=== PATIENT | male | born 1935 | race Caucasian/White ===

== ENCOUNTER → 2024-05-18 09:49 | Outpatient (REF) | payer OTHER, SELFPAY | LOC: RAD 09:49 | PROVIDERS: ATTENDING PHYSICIAN Surgery Vascular Surgery; FAMILY PHYSICIAN Family Medicine | DX: I73.9 Peripheral vascular disease, unspecified (principal) | CPT/HCPCS: 93922; 93925; 93978 ==

== ENCOUNTER → 2025-05-16 09:49 | Outpatient (REF) | payer OTHER, SELFPAY | LOC: DHVS 09:49 | PROVIDERS: ATTENDING PHYSICIAN Surgery Vascular Surgery; FAMILY PHYSICIAN Family Medicine | DX: I73.9 Peripheral vascular disease, unspecified (principal) | CPT/HCPCS: 93922; 93925; 93978 ==

== ENCOUNTER 2025-08-01 23:57 | Inpatient (IN) | payer OTHER, SELFPAY ==
[2025-08-01 19:11] VITALS: BP 144/58
--- NOTE | 2025-08-01 19:55 | ED.GENMED ---
History of Present Illness
General
Chief Complaint: Breathing Problem
Time Seen by Provider: 08/01/25 19:31
History of Present Illness
History of Present Illness:
Patient is an 89-year-old male with a history of atrial fibrillation on Eliquis, COPD not on home oxygen who presents to the emergency department with shortness of breath. This is gradual in onset. Has been worsening for the past few weeks.
Denies any cough or chest pain. Denies any leg swelling.
Past History
Past History
ED Past Medical History: Arrthythmia (A. fib on Eliquis and aspirin), COPD, HTN, Hypercholesterolemia and Other (anemia)
ED Past Surgical History: Other (vascular)
Social History
Tobacco: Non-smoker
Alcohol: None
Drug: None
Personal:
Living: with family
Employment: Retired
Family History
Family History: Other (Noncontributory)
Phy Exam
Physical Exam
Physical Exam:
GENERAL APPEARANCE: Thin appearing elderly gentleman
EYES lids/conjunctiva normal
EARS/NOSE/THROAT Mucous membranes moist, uvula midline without oral pharyngeal erythema, exudate or swelling
HEAD/NECK normocephalic atraumatic, neck is supple.
RESPIRATORY breathing comfortably on nasal cannula oxygen. No increased work of breathing. Diminished breath sounds throughout. There is expiratory wheezing throughout.
CARDIAC Regular rate and rhythm, no edema.
ABDOMINAL Soft, ND/NT.
MUSCLES/EXTREMITIES No abnormal range of motion, no swelling.
SKIN Warm, pink and dry. No rashes
NEUROLOGICAL Speech is clear and appropriate. Normal level of consciousness. 5/5 strength in all extremities.
PSYCH Normal mood and affect. Judgement/competence is appropriate
Scores
Heart Failure Risk
Heart Failure Risk Score: Not Applicable
Course
Orders/Labs/Results
Orders:
Orders
08/01/25 19:53
Ipratropium/Albuterol Sulfate [Duoneb] 3 ml INH R NOW STA
MethylPREDNISolone PF [Solu-Medrol Pf] 125 mg IV NOW STA
CR Chest - 2 Views Urgent
Comment:
Reason For Exam: sob
O2 Therapy [RESP] Stat
Titrate/Wean O2 to maintain O2 sat greater than (%): 90
Pulse Ox/cont/shift [RESP] Stat
Quantity: 1
08/01/25 20:18
Complete Blood Count/With Diff Urgent
Comprehensive Metabolic Panel Urgent
Lactic Acid Q4H
Comment: CANCEL 2nd LACTIC ACID IF 1st LACTIC ACID IS LESS THAN 2
NT-proBNP Urgent
Troponin I Urgent
Blood Culture Urgent
FRANCISCO Source: Blood/Venous
Specimen Description:
08/01/25 21:49
Electrocardiogram (*1) Urgent
Reason for Study: Shortness of Breath
08/01/25 22:02
Azithromycin 500 mg/250 ml [Zithromax Infusion] 500 mg in 250 ml IV NOW
CefTRIAXone [Rocephin] 1,000 mg IV NOW STA
08/02/25 00:00
Lactic Acid Q4H
Comment: CANCEL 2nd LACTIC ACID IF 1st LACTIC ACID IS LESS THAN 2
Abnormal Lab Results
08/01/25
20:18
RBC 3.53 L 10^6/uL
(4.70-6.10)
Hgb 10.6 L g/dL
(13.0-18.0)
Hct 32.6 L %
(39.0-52.0)
MCHC 32.5 L g/dL
(33.0-37.0)
RDW 15.8 H %
(11.5-14.5)
MPV 10.5 H fL
(7.4-10.4)
Absolute Neuts (auto) 7.2 H 10^3/uL
(1.4-6.5)
Absolute Lymphs (auto) 1.1 L 10^3/uL
(1.2-3.4)
Absolute Monos (auto) 0.9 H 10^3/uL
(0.1-0.6)
Lymphocytes % 11.3 L %
(20.5-51.1)
Monocytes % 9.7 H %
(1.7-9.3)
Chloride 108 H mmol/L
(98-107)
BUN 52 H mg/dl
(9-20)
Creatinine 2.5 H mg/dL
(0.7-1.3)
Glucose 115 H mg/dl
(70-99)
08/01/25 20:18
08/01/25 20:18
Vital Signs
Initial and Last Documented VS:
Initial Vital Signs
Temp Pulse Resp BP Pulse Ox
97.8 F 86 20 144/58 83
08/01/25 19:11 08/01/25 19:11 08/01/25 19:11 08/01/25 19:11 08/01/25 19:11
Last Documented Vital Signs
Temp Pulse Resp BP Pulse Ox
97.8 F 80 22 144/58 96
08/01/25 19:11 08/01/25 21:45 08/01/25 21:45 08/01/25 19:11 08/01/25 21:45
*Pulse Oximetry
SaO2: 98
Nasal Cannula flow liters per minute: 5
Oxygen Mode of Delivery: Room air
Patient hypoxic: yes
*Critical Care Note
Total Time (30-74mins, 75-104mins- exclusive of procedures): Not Applicable
ED Attending Note
ED Attending Note
ED Attending Note:
This 89-year-old male with history of atrial fibrillation on Eliquis, COPD, and hypertension presents with progressive dyspnea over several weeks. Given his age and risk factors, I considered multiple life-threatening conditions including pneumonia,
acute heart failure, COPD exacerbation, pulmonary embolism, and acute coronary syndrome.
Initial evaluation revealed significant hypoxia with room air saturation in the low 80s requiring supplemental oxygen. Physical examination demonstrated diffuse expiratory wheezes without peripheral edema. Laboratory studies showed chronic kidney
disease with creatinine elevation to 2.5 (baseline 1.8), markedly elevated BNP at 3710, and chest x-ray revealed right upper lobe infiltrate consistent with pneumonia.
The patient's presentation appears to represent multifactorial respiratory failure with components of both community-acquired pneumonia with possible acute heart failure, as evidenced by the significantly elevated BNP and radiographic findings.
While PE remains in the differential given his atrial fibrillation, his current anticoagulation with Eliquis makes this less likely.
The patient received bronchodilator therapy and systemic steroids with some improvement. Given the radiographic pneumonia, he was started on appropriate empiric antibiotics with azithromycin and ceftriaxone. He demonstrated clinical improvement with
initial interventions but continues to require supplemental oxygen.
Given his age, multiple comorbidities, new oxygen requirement, and evidence of both pneumonia and COPD exacerbation, admission is clearly indicated for further management. I discussed the findings and recommendation for admission with the patient,
who demonstrated understanding of the plan.
Medical decision making was high complexity given multiple diagnostic possibilities considered, abnormal vital signs requiring intervention, multiple diagnostic studies, initiation of parenteral antibiotics, and need for admission.
-
Portions of this chart may have been created with voice recognition software.� Occasional wrong word or��sound alike� substitutions may have occurred due to the inherent limitations of voice recognition software.
Discharge Plan
Departure
Prescriptions:
No Action
atorvastatin 40 MG tablet
40 mg PO QPM
carvedilol 6.25 MG tablet
6.25 mg PO BID
fluticasone propion-salmeterol [Advair HFA] 1 PUFF HFA aerosol inhaler
2 puff inhalation R DAILY
omega 8-kkf-hcl-fish oil 1 EACH capsule
1 ea PO DAILY
denosumab [Prolia] 60 MG/ML syringe
60 mg SQ .[id number]
Patient Comments:
last dose around 05/18
ferrous sulfate [FeroSul] 325 MG tablet
650 mg PO DAILY
multivitamin with folic acid [Tab-A-Rosa] 1 TABLET tablet
1 tab PO DAILY
calcium carbonate 600 MG tablet
600 mg PO DAILY
acetaminophen [Tylenol Extra Strength] 500 MG tablet
1,000 mg PO HSPRN PRN (Reason: mild pain)
cholecalciferol (vitamin D3) 2,000 UNITS tablet
2,000 units PO DAILY@1200
amlodipine 5 MG tablet
5 mg PO DAILY
pantoprazole 40 MG tablet,delayed release (DR/EC)
40 mg PO BID
ipratropium bromide 1 SPRAY spray,non-aerosol
2 spray intranasal BID
apixaban [Eliquis] 2.5 MG tablet
2.5 mg PO BID Qty: 0 0RF
Rx Instructions:
Resume taking from 06/02/21
Referrals:
Sha Campbell MD [Family Provider, Family Practice]
Interventions
Interventions:
*Risk Screen - Suicide Last Done: 08/01/25 19:11
*Neglect/Abuse Screening Last Done: 08/01/25 19:11
ED- Cardiac Assessment Last Done: 08/01/25 20:30
ED- Pulmonary Assessment Last Done: 08/01/25 20:30
Discharge Date and Time
Print Language: TURKMEN
[2025-08-01] MEDS: DUONEB 3 ML INH (20:29)
[2025-08-01 20:30] LABS: Hematocrit 32.6 % (39.0-52.0); Hemoglobin 10.6 g/dL (13.0-18.0); Mean Corp Hgb Conc. 32.5 g/dL (33.0-37.0); Mean Corpuscular Volume 92.4 fL (80.0-94.0); Nucleated Red Blood Cells % 0 % (-); Platelet Count 316 10^3/uL (130-400); Red Cell Dist. Width 15.8 % (11.5-14.5)
[2025-08-01] MEDS: SOLU-MEDROL PF 125 MG IV (20:30)
[2025-08-01 20:44] LABS: ALT (SGPT) 23 U/L (0-50); AST (SGOT) 28 U/L (17-59); Albumin 3.8 g/dl (3.5-5.0); Alkaline Phosphatase 87 U/L (38-126); Blood Urea Nitrogen 52 mg/dl (9-20); Calcium 9.5 mg/dl (8.4-10.2); Carbon Dioxide 26 mmol/L (22-30); Chloride 108 mmol/L (98-107); Glucose 115 mg/dl (70-99); Potassium 5.1 mmol/L (3.5-5.1); Sodium 142 mmol/L (135-145); Total Protein 7.8 g/dl (6.3-8.2); eGFR 23.96
[2025-08-01 20:54] LABS: Troponin I 0.025 ng/ml
[2025-08-01 22:01] VITALS: BP 160/66
--- NOTE | 2025-08-01 22:12 | W.PN.UPDATE ---
Addendum entered and electronically signed by Jeffrey Mccall MD 08/01/25 22:46:
CORRECTION:
DVT Px: COLLAR FOLDER OPERATOR Eliquis
<del>Full</del> <del>code</del> <del>Code:</del> DNR per patient in the presence of daughter and FARM OPERATIONS TECHNICAL DIRECTOR
IP TLM
Original Note:
Update Note
Progress Note Update
This note serves as an addendum to the H&P by manager neonatal Main Mendoza
HPI
89M HX Prx AF on Eliquis, HX COPD seen at ER:
- gradual SoB has been worsening for the past few weeks.
- Denies any cough or chest pain. Denies any leg swelling.
- worsening dyspnea over past few weeks
- newly hypoxic with RA Sat in the low 80s. requiring nasal cannula O2
- diffuse expiratory wheezes exams
labs with renal dysfunction, likely chronic (creat 2.5 -- most recent was 1.8 in 2020)
BNP is 3710
CXR looks like RUL pneumonia
Relevant VS
08/01/25
19:11 08/01/25
19:24
Temp 97.8 F
Pulse 86
Resp Rate 20
Blood pressure 144/58
SaO2 83 98
Oxygen Mode of Delivery Room air
Nasal Cannula flow liters per minute 5
PE
Gen: Not toxic
HEENT: anicteric
Neck: supple
Lungs:No increased work of breathing. Diminished breath sounds throughout. There is expiratory wheezing
Cor: RRR
Abdomen:�soft NT NG
NURSE'S ASSISTANT: NFND
MS: no0 edema
Psych: appropriate
Relevant Data
06/04/21 06/04/21 08/01/25
08:35 09:27 20:18
WBC 9.6
Hgb 9.9 L 10.6 L
Carbon Dioxide 26 26
BUN 26 H 52 H
Creatinine 1.8 H 2.5 H
Glomerular Filtr Rate 36.0
eGFR 23.96
Troponin I 0.025
Ywb-C-Ayzyuryreff Pept 3710
Relevant Data
BCx - sent
CXR:
There is an infiltrate within the right upper lung as well as mild bibasilar opacities which are favored to represent multifocal pneumonia. Recommend follow-up to ensure resolution.
04/15/20 TTE
LVEF 55-60%
Normal regional wall motion.
Mild to moderate MR
Moderate to severe TR
Normal pericardium without effusion.
Pleural effusion present.
Last hospitalist admission: DATE OF ADMISSION: 05/26/2021 - DATE OF DISCHARGE: 05/29/2021
PRINCIPAL DISCHARGE DIAGNOSES:
1. Iron deficiency anemia, suspected occult gastrointestinal blood loss.
2. History of peptic ulcer disease.O2 support
CHRONIC DISCHARGE DIAGNOSES:
1. Peripheral vascular disease with left iliac stent and fem-fem
bypass, in January 13.
2. History of right external iliac artery stenosis.
3. Chronic kidney disease stage IIIB.
4. Paroxysmal atrial fibrillation, on Eliquis.
5. Essential hypertension.
6. Chronic obstructive pulmonary disease.
7. History of coronary artery disease with tricuspid regurgitation
and mitral regurgitation.
ASSESSMENT & PLAN
Rt sided multifocal pneumonia - presumed CAP
COPD flares
Acute hypoxic RI requiring
- O2 supplement
- IV Decadron
- Nebs
- Empiric IV CFTZ and PO Azithro
CHRONIC DISCHARGE DIAGNOSES:
HX PAD with left iliac stent and fem-fem bypass, in January 13.
HX right external iliac artery stenosis.
[place] CKD3b
PAF on Eliquis.
Essential hypertension.
HX CAD with TR and MR
- Pending Rx reconciliation
DVT Px: COLLAR FOLDER OPERATOR Eliquis
Full code Code:
IP TLM
--- NOTE | 2025-08-01 22:15 | HPS.HSE ---
Family Physician
-
Family Physician: Sha Campbell
Chief Complaint
-
shortness of breath
History of Present Illness
Patient is a 89-year-old male with past medical history significant for hypertension, hyperlipidemia, paroxysmal atrial fibrillation, chronic kidney disease III, COPD and PVD presented to [facility] ED for evaluation of shortness of breath. Patient
reports that he has had increased shortness of breath for the last 4-5 days with no improvement felt exhausted today so decided to go to urgent care for evaluation and was referred to ED for evaluation and treatment. Patient denies any fever,
chills, cough, chest pain, nausea, vomitng, diarrhea or urinary symptoms.
Medical History
Past Medical History
Past Medical History: Reports Other
Additional Past Medical History:
hypertension
hyperlipidemia
paroxysmal atrial fibrillation
chronic kidney disease III
COPD
PVD
Past Surgical History: Reports Other
Additional Past Surgical History:
Tonsillectomy
RIH repair
Femoral bypass
LE stent
Bilateral cataracts
Left brachial artery cutdown, aortogram, pelvic angiogram and bilateral femoral angiography with placement of self expanding stent of left external iliac artery into common iliac artery 06/04/2021
Social History
Tobacco: Former Smoker
Alcohol: Former
Drug: None
Personal:
Living: With Family
Family History
Family History: Not pertinent
Allergies / Home Medications
Allergies reflects when Allergies were last updated in [facility].
Home Medications with original date entered in [facility]
Allergy/Medication List:
Medications on admission are unable to be verified or confirmed at this time.
If medication reconciliation has not been performed, why?: Other ( will complete tomorrow when she comes in, she is in charge of pills per patient )
Review of Systems
-
History Source: Patient
Constitutional: Reports No Symptoms
EENT: Reports No Symptoms
Respiratory: Reports Trouble Breathing (shortness of breath with hypoxia )
Cardiac: Reports No Symptoms
Abdomen/GI: Reports No Symptoms
: Reports No Symptoms
Musculoskeletal: Reports No Symptoms
Skin: Reports No Symptoms
Neurological: Reports No Symptoms
Endocrine: Reports No Symptoms
Hematologic/Lymphatic: Reports No Symptoms
Psych: Reports No Symptoms
Physical Exam
Vital Signs
Vital Signs
Temp Pulse Resp BP Pulse Ox
97.8 F 80 22 144/58 96
08/01/25 19:11 08/01/25 21:45 08/01/25 21:45 08/01/25 19:11 08/01/25 21:45
Physical Exam
General: No Apparent Distress, Comfortable, Conversant, Appears Chronically Ill and Cachectic
HEENT: NormoCephalic, Moist mucous membranes and Atraumatic
Respiratory: Clear, Wheezes, Non Labored Respirations and Decreased Breath Sounds
Cardiac: S1/S2 and Regular Rhythm
Breast: Deferred by me
GI: Soft, Non Tender, Non Distended and Normal Bowel Sounds; No Organomegaly
Rectal: Deferred by Provider
Genito-urinary: Deferred by me
Musculoskeletal: No Clubbing, No Cyanosis and No Edema
Skin: Warm and IV/Catheter Site
Neuro: Awake, AO x 3 and Nonfocal/grossly intact
Hematologic/Lymphatic: No Lymphadenopathy
Psych: Calm and Intact Judgment/Insight
Laboratory Results
-
08/01/25 20:18
08/01/25 20:18
Laboratory Results
Lactic Acid 0.8 mmol/L (0.7-2.0) 08/01/25 20:18
Total Bilirubin 0.4 mg/dl (0.2-1.3) 08/01/25 20:18
AST 28 U/L (17-59) 08/01/25 20:18
ALT 23 U/L (0-50) 08/01/25 20:18
Alkaline Phosphatase 87 U/L (38-126) 08/01/25 20:18
Troponin I 0.025 ng/ml 08/01/25 20:18
Data Reviewed
-
Diagnostic Radiology: Report Reviewed by me (CXR: There is an infiltrate within the right upper lung as well as mild bibasilar opacities which are favored to represent multifocal pneumonia. Recommend follow-up to ensure resolution.)
Lab Data: Labs Reviewed by me (BUN 52, Creat 2.5, eGFR 23.96, pBNP 3710)
Impression/Plan
-
IMPRESSION/PLAN:
#shortness of breath and hypoxia 2/2 pneumonia
BUN 52, Creat 2.5, eGFR 23.96, pBNP 3710
CXR: There is an infiltrate within the right upper lung as well as mild bibasilar opacities which are favored to represent multifocal pneumonia. Recommend follow-up to ensure resolution.
EKG: SINUS RHYTHM WITH PREMATURE ATRIAL COMPLEXES
SEPTAL INFARCT , AGE UNDETERMINED
- Admit to telemetry
- O2 supplement, wean as tolerated
- IV Decadron 4mg q12
- IV ceftriaxone
- PO Azithromycin
- supportive care
#hypertension
#hyperlipidemia
#paroxysmal atrial fibrillation
#chronic kidney disease III
#COPD
#PVD
* to complete med rec in AM, patient knows he takes Eliquis BID, will order Eliquis and other meds to be on hold until med rec completed*
Code status: DNR
DVT prophylaxis: Eliquis
[2025-08-01] MEDS: ZITHROMAX INFUSION 250 IV (22:23)
[2025-08-01] MEDS: ROCEPHIN 1000 MG IV (22:23)
[2025-08-01 23:00] VITALS: BP 136/84
[2025-08-02] VITALS (9 sets, daily range): BP systolic 122–176; BP diastolic 57–83; PULSE 78; O2SAT 91; BMI 18.0
[2025-08-02] MEDS: ELIQUIS PO (01:14)
[2025-08-02] MEDS: DECADRON 4 MG IV ×3 (01:16→23:12)
--- NOTE | 2025-08-02 03:33 | PTCARENOTE ---
Pt's B/P slowing climbing during this shift. 161/81 and 176/83. Nyasia Dove BD SPECIAL EDUCATION TEACHER aware. Will address if B/P >180 systolically.
[2025-08-02] MEDS: DUONEB 3 ML INH ×4 (07:23→20:29)
[2025-08-02 07:53] LABS: Hematocrit 33.6 % (39.0-52.0); Hemoglobin 10.9 g/dL (13.0-18.0); Mean Corp Hgb Conc. 32.4 g/dL (33.0-37.0); Mean Corpuscular Volume 93.1 fL (80.0-94.0); Platelet Count 332 10^3/uL (130-400); Red Cell Dist. Width 15.5 % (11.5-14.5)
[2025-08-02 08:19] LABS: Blood Urea Nitrogen 53 mg/dl (9-20); Calcium 9.5 mg/dl (8.4-10.2); Carbon Dioxide 23 mmol/L (22-30); Chloride 110 mmol/L (98-107); Estimated Creatinine Clearance 17 ml/min; Glucose 161 mg/dl (70-99); Potassium 4.9 mmol/L (3.5-5.1); Sodium 145 mmol/L (135-145); eGFR 27.93
[2025-08-02] MEDS: ELIQUIS 2.5 MG PO ×2 (08:37→19:35)
[2025-08-02 08:52] LABS: Nucleated Red Blood Cells % 0 % (-)
[2025-08-02] MEDS: COREG 6.25 MG PO ×2 (11:30→19:25)
--- NOTE | 2025-08-02 12:16 | CM ---
Chart reviewed. Met with pt at bedside. IA completed. Pt is independent at home with ADLs and IADLs. Lives with spouse in 2-story townhouse; has 1 step to entrance with a railing. [place] on 1st floor.Has children who live locally.No Hx of SNF. Had [facility]
years ago and was happy with their care. States he would like to have them again. DME: Rolling walker and grab bars in [place]. Confirmed PCP, RX, insurance and drug coverage. No insecurities identified.
PCP: Sha Campbell
Rx: [facility]
Plan: Home no needs.
--- NOTE | 2025-08-02 12:23 | W.PN.HOSP.TC ---
Today's Communication/Plan
-
Maintained on antibiotic
Maintained on steroids
Possible discharge tomorrow
Assessment / Plan
Assessment / Plan
1. Right upper lobe pneumonia
COPD flareup
- Chest x-ray reviewed and patient had right upper lobe infiltrates
- Patient was short of breath although not hypoxic
- Lung examination relatively clear today
- Maintain on Rocephin/azithromycin
- On IV Decadron 4 mg every 12 hours will transition to oral taper at discharge
- COVID check and sputum culture ordered
2. Paroxysmal atrial fibrillation
- Maintained on home dose of Eliquis 2-1/2 mg twice daily
3. Hyperlipidemia
- Continue on statin
4. Chronic kidney disease stage IIIb
- Creatinine close to baseline monitor
5. Essential hypertension
- Maintained on Coreg/Norvasc
DVT prophylaxis -Eliquis
DNR
Anticipated Discharge: Within 24 hours
Subjective/Interval History
-
Date of Service: August 02, 2025
Feeling better
Denies shortness of breath
Not on oxygen
Afebrile in night
Objective Data
-
Labs:
Laboratory Results
08/02/25
07:20
WBC 6.9
Hgb 10.9 L
Hct 33.6 L
Plt Count 332
Sodium 145
Potassium 4.9
Chloride 110 H
Carbon Dioxide 23
BUN 53 H
Creatinine 2.2 H
Glucose 161 H
Calcium 9.5
Vital Signs:
Vital Signs
Temp Pulse Resp BP Pulse Ox
97.5 F 88 16 140/62 91
08/02/25 11:00 08/02/25 11:40 08/02/25 11:40 08/02/25 11:00 08/02/25 11:40
Review of Systems
-
Respiratory: Reports No Symptoms
Cardiac: Reports No Symptoms
Abdomen/GI: Reports No Symptoms
Physical Exam
-
General: Comfortable and Cachectic
HEENT: Negative Oxygen
Respiratory: Clear to Auscultation
Cardiac: Regular Rhythm and S1/S2; Negative Murmur or Rub
Musculoskeletal: No Edema
Neuro: Awake, Alert, Oriented, No Motor Deficits and Nonfocal/Grossly Intact
Psych: Calm
[2025-08-02 14:53] LABS: COVID-19 Antigen Negative (Negative)
[2025-08-02] MEDS: ZITHROMAX 500 MG PO (21:33)
[2025-08-02] MEDS: STERILE WATER FOR INJECTION 10 ML IV (21:34)
[2025-08-02] MEDS: LIPITOR 40 MG PO (21:34)
[2025-08-02] MEDS: ROCEPHIN 1000 MG IV (21:34)
[2025-08-03 03:00] VITALS: BP 143/63
[2025-08-03] MEDS: DUONEB 3 ML INH ×2 (07:43→11:24)
[2025-08-03 07:59] LABS: Hematocrit 29.5 % (39.0-52.0); Hemoglobin 9.5 g/dL (13.0-18.0); Mean Corp Hgb Conc. 32.2 g/dL (33.0-37.0); Mean Corpuscular Volume 92.5 fL (80.0-94.0); Platelet Count 326 10^3/uL (130-400); Red Cell Dist. Width 15.5 % (11.5-14.5)
[2025-08-03] MEDS: COREG 6.25 MG PO (08:07)
[2025-08-03] MEDS: ELIQUIS 2.5 MG PO (08:08)
[2025-08-03] MEDS: NORVASC 5 MG PO (08:08)
[2025-08-03 08:27] VITALS: BP 146/67
[2025-08-03 09:03] LABS: Blood Urea Nitrogen 64 mg/dl (9-20); Calcium 8.7 mg/dl (8.4-10.2); Carbon Dioxide 22 mmol/L (22-30); Chloride 111 mmol/L (98-107); Estimated Creatinine Clearance 18 ml/min; Glucose 126 mg/dl (70-99); Potassium 5.1 mmol/L (3.5-5.1); Sodium 143 mmol/L (135-145); eGFR 29.53
--- NOTE | 2025-08-03 10:16 | W.DCSUMMARY ---
Discharge Summary
Discharge Data
Date of Admission: 08/01/25
Date of Discharge: 08/03/25
-
Pending Results: No
Hospital Course
Discharging Physician : Dr Vivek Linares
Disposition : To home with
Primary care physician : Dr Sha Campbell
Principal Discharge diagnosis :
Right upper lobe pneumonia
Chronic obstructive pulmonary disease flareup
Chronic Discharge diagnosis :
Essential hypertension
Paroxysmal atrial fibrillation
Hyperlipidemia
Chronic kidney disease stage III
Peripheral vascular disease
Hyperlipidemia
Physical examination:
HEENT: No cyanosis
NECK: Supple. No JVD.
RESPIRATORY: Lungs clear to auscultation.
CVS: S1, S2 normal. RRR. No murmur.
ABDOMEN: Soft, non-tender. No distension. BS+/normal.
EXTREMITIES: No peripheral cyanosis or edema.
PHOTOGRAPHIC DOUBLE: AOx3. No focal deficits.
Hospital Course :
Patient is 89-year-old male with no mentioned past medical history came to ER with new onset of shortness of breath for 4 to 5-day. No reported fever chills cough chest discomfort. In the ER patient had a chest x-ray which showed new right upper
lobe pneumonia. Patient was not septic from it. Patient was felt to having COPD flareup as well. Patient was started on IV steroids and IV antibiotics. COVID check was negative. Patient was not able to provide sputum culture sample. Patient
was not on oxygen at admission and remained so for the hospital stay. After clinical improvement patient was discharged on short course of antibiotic and tapering course of steroids.
Important imaging findings :
None
Procedure findings :
None
Discharge Plan
-
Patient Disposition: Home with Home Care
Discharge Diagnosis/Procedures: Right upper lobe pneumonia, COPD flare up
Condition: Fair
Diet: Low Cholesterol
Activity: As tolerated
Driving Restrictions: No driving
Bathing Restrictions: OK to Shower
Referrals:
Sha Campbell MD [Family Provider, [facility]] - in one week
Prescriptions:
New
azithromycin 250 mg tablet
250 mg PO DAILY 5 Days Qty: 5 0RF
cefdinir 300 mg capsule
300 mg PO BID 5 Days Qty: 10 0RF
prednisone 10 mg Tablet
See Rx Instructions .ROUTE .COMPLEX Qty: 20 0RF
Rx Instructions:
Take By Mouth:
40 mg daily x2 days, 30 mg daily x2 days,
20 mg daily x2 days, 10 mg daily x2 days.
Continued
atorvastatin 40 MG tablet
40 mg PO QPM
carvedilol 6.25 MG tablet
6.25 mg PO BID
fluticasone propion-salmeterol [Advair HFA] 1 PUFF HFA aerosol inhaler
2 puff inhalation R DAILY
omega 7-ebt-ihw-fish oil 1 EACH capsule
1 ea PO DAILY
Prolia 60 MG/ML syringe
60 mg SQ .[id number]
Patient Comments:
last dose around 05/18
ferrous sulfate [FeroSul] 325 MG tablet
650 mg PO DAILY
multivitamin with folic acid [Tab-A-Rosa] 1 TABLET tablet
1 tab PO DAILY
calcium carbonate 600 MG tablet
600 mg PO DAILY
acetaminophen [Tylenol Extra Strength] 500 MG tablet
1,000 mg PO HSPRN PRN (Reason: mild pain)
cholecalciferol (vitamin D3) 2,000 UNITS tablet
2,000 units PO DAILY@1200
amlodipine 5 MG tablet
5 mg PO DAILY
pantoprazole 40 MG tablet,delayed release (DR/EC)
40 mg PO BID
ipratropium bromide 1 SPRAY spray,non-aerosol
2 spray intranasal BID
Eliquis 2.5 MG tablet
2.5 mg PO BID Qty: 0 0RF
Rx Instructions:
Resume taking from 06/02/21
Discharge Orders:
Discharge Patient (As Directed); Ordered 08/03/25
Ordered By: Vivek Linares
Discharge Date and Time
Print Language: ROMANIAN
[2025-08-03 11:30] VITALS: BP 130/81
--- NOTE | 2025-08-03 11:31 | CM ---
Chart reviewed. Met with Pt chairside. OT Rec today is Home Care. Spoke with patient about options and he chose [facility]. [facility] liaison, Jane Brannon, was made aware. Pt is discharged. Wll be transported home with dtr in private car
Plan: Home with [facility]
--- NOTE | 2025-08-03 12:47 | VNURNOTE ---
Home Health Liaison met with patient at bedside to discuss [facility] nurse/therapy, visits, schedule and homebound status. Patient is agreeable and understands that visits at home will be 2-3 x per week to assess and teach medical management.
Patient is aware that [facility] will contact them for start of care in 1-2 days after discharge from . Provided contact number for [facility].
[facility] referral completed in [facility].
== END 2025-08-03 12:44 | disposition home health service (06) | DRG 190 ==
LOC: 4 WEST ACU 23:57
PROVIDERS: Nurse Practitioner Family; ADMITTING PHYSICIAN Internal Medicine; ATTENDING PHYSICIAN Hospitalist; EMERGENCY PHYSICIAN Emergency Medicine; FAMILY PHYSICIAN Family Medicine
DX: J44.0 Chronic obstructive pulmonary disease with (acute) lower respiratory infection (principal); J18.9 Pneumonia, unspecified organism; J96.91 Respiratory failure, unspecified with hypoxia; J44.1 Chronic obstructive pulmonary disease with (acute) exacerbation; I48.0 Paroxysmal atrial fibrillation; D64.9 Anemia, unspecified; E78.00 Pure hypercholesterolemia, unspecified; N18.32 Chronic kidney disease, stage 3b; I73.9 Peripheral vascular disease, unspecified; I12.9 Hypertensive chronic kidney disease with stage 1 through stage 4 chronic kidney disease, or unspecified chronic kidney disease; Z66 Do not resuscitate; Z79.01 Long term (current) use of anticoagulants; Z87.891 Personal history of nicotine dependence; Z79.51 Long term (current) use of inhaled steroids; Z11.52 Encounter for screening for COVID-19
CPT/HCPCS: 71046; 80048; 80053; 83605; 83880; 84484; 85025; 85027; 87040; 87811; 93005; 94640; 96365; 96375; 97163; 97166; 99285